=== PATIENT | male | born 1970 | race Hispanic/Latino ===

== ENCOUNTER 2019-05-27 11:10 | Day surgery (SDC) | payer OTHER ==
[~2019-05-27 11:10] MED LIST: APRACLONIDINE 1% OPHTH SOLN DROPERETTE OD ONE; APRACLONIDINE 1% OPHTH SOLN DROPERETTE ONE; PHENYLEPHRINE 10% OPHTH SOLN 5 ML OD ONE; PHENYLEPHRINE 10% OPHTH SOLN 5 ML ONE; TROPICAMIDE 1% OPHTH SOLN 3 ML OD ONE; TROPICAMIDE 1% OPHTH SOLN 3 ML ONE
[2019-05-27] MEDS ORDERED: PHENYLEPHRINE 10% OPHTH SOLN 5 ML OD ONE (11:35)
[2019-05-27] MEDS ORDERED: TROPICAMIDE 1% OPHTH SOLN 3 ML OD ONE (11:35)
[2019-05-27] MEDS ORDERED: APRACLONIDINE 1% OPHTH SOLN DROPERETTE OD ONE ×2 (11:35→12:16)
[2019-05-27 12:14] VITALS: BP 175/79
== END 2019-05-27 12:20 | disposition home or self-care (01) ==
LOC: OR 11:10
PROVIDERS: ATTEND Ophthalmology
DX: H26.491 Other secondary cataract, right eye (principal); E78.00 Pure hypercholesterolemia, unspecified; I12.9 Hypertensive chronic kidney disease with stage 1 through stage 4 chronic kidney disease, or unspecified chronic kidney disease; N18.9 Chronic kidney disease, unspecified; Z88.5 Allergy status to narcotic agent; Z79.899 Other long term (current) drug therapy; Z79.4 Long term (current) use of insulin; Z98.890 Other specified postprocedural states
CPT/HCPCS: 82962